=== PATIENT | female | born 1985 ===

== ENCOUNTER 2017-10-04 21:32 | Inpatient (IN) | payer OTHER ==
[2017-10-04] MEDS ORDERED: Lidocaine 2% PF (10 ml) Amp ONE (21:53)
[2017-10-04 22:30] VITALS: BMI 26.6
[2017-10-04] MEDS ORDERED: Benzocaine/Menthol SPRAY TOP PRN (22:57)
[2017-10-04] MEDS ORDERED: Oxycodone/Acetaminophen 5/325 mg Tab PO PRN (22:57)
[2017-10-05 00:07] LABS: BASO % 0.1 % (0.0-2.0); EOS # 0.3 K/uL (0.0-0.7); EOS % 1.4 % (0.0-4.0); HEMOGLOBIN 14.2 g/dL (12.0-16.0); LYMPH # 4.9 K/uL (1.0-4.3); MEAN CORPUSCULAR HEMOGLOBIN 28.4 pg (27.0-31.0); MEAN CORPUSCULAR HGB CONC 33.4 g/dL (33.0-37.0); MEAN PLATELET VOLUME 10.8 fl (7.2-11.7); MONO # 1.2 K/uL (0.0-0.8); MONO % 6.6 % (0.0-10.0); NEUT # 11.8 K/uL (1.8-7.0); NEUT % 64.9 % (50.0-75.0); RED CELL DISTRIBUTION WIDTH 14.6 % (11.5-14.5); WHITE BLOOD COUNT 18.2 K/uL (4.8-10.8)
[2017-10-05] MEDS ORDERED: Oxycodone/Acetaminophen 5/325 mg Tab PO PRN ×2 (02:01→02:02)
[2017-10-05] MEDS ORDERED: Benzocaine/Menthol SPRAY TOP PRN ×2 (02:01→02:02)
[2017-10-05 02:37] VITALS: RESP 18
[2017-10-05 07:01] LABS: BASO % 0.2 % (0.0-2.0); EOS # 0.1 K/uL (0.0-0.7); EOS % 0.5 % (0.0-4.0); HEMOGLOBIN 12.7 g/dL (12.0-16.0); LYMPH % 12.2 % (20.0-40.0); MEAN CELL VOLUME 83.8 fl (81.0-99.0); MEAN CORPUSCULAR HEMOGLOBIN 28.4 pg (27.0-31.0); MEAN CORPUSCULAR HGB CONC 33.9 g/dL (33.0-37.0); MEAN PLATELET VOLUME 11.4 fl (7.2-11.7); MONO # 1.1 K/uL (0.0-0.8); NEUT # 13.2 K/uL (1.8-7.0); NEUT % 80.1 % (50.0-75.0); NRBC % 0.1 % (0.0-0.0); RBC 4.48 Mil/uL (3.80-5.20); RED CELL DISTRIBUTION WIDTH 14.9 % (11.5-14.5); WHITE BLOOD COUNT 16.4 K/uL (4.8-10.8)
--- NOTE | 2017-10-05 08:32 | OBADHP ---
Datetime: 10/04/2017 23:28 Admit Comment, IP Provider: at 37wks GA presented to [facility] with precipitous labor. Pt fully dil ated and delivering upon presentation. records reviewed. PMHx denies PSHx denies Meds PNV OBHx x 1 SocHx No tob,etoh.drugs A: Active Labor P: Admitted for management Pelvic Type - PN: Adequate Extremities - PN: Normal Abdomen - PN: Normal Back - PN: Normal Breast - PN: Normal Lungs - PN: Normal Heart - PN: Normal Thyroid - PN: Normal Neurologic - PN: Normal HEENT - PN: Normal General - PN: Normal FHR - Baseline A Provider: 120s Contraction Comments Provider: q2-3min IP Hx Assessment: The History has been Reviewed and is Current Vital Signs Provider: Reviewed; Within Normal Limits IP Chief Complaint: Uterine contractions Dilatation, Provider: 10 Effacement, Provider: 100 Station, Provider: 3 Genitourinary Exam: Normal DTRs - PN: Normal IP Adm Impression: Term, intrauterine ; Active labor IP Admit Plan: Admit to unit; Initiate labor protocol
--- NOTE | 2017-10-05 08:40 | OBDS ---
DELIVERY PERSONNEL Delivery Doctor: Kashif Quiroga MD Scrub Nurse: Yessenia Cnao OBT Form Setter [employer] Forms: Arlen Pinzon RN MATERNAL INFORMATION Delivery Anesthesia: Local Medications in Delivery: pitocin Estimated Blood Loss (ml): 300 Placenta Cultured: No Maternal Complications: None Provider Comments: . Precipitous delivery. Pt delivered viable infant with Apgars 9/9. Pt with SROM moments before delivery. Placenta deliv ered spontaneously. Loose nuchal cord x 1 reduced. Cord with true knot. laceration repaired, as ab ove. Placenta delivered spontaneously. Uterus firm and appropriately hemostatic following delivery. Pt tolerated delivery and repair well. No complications. EBL 300cc. LABOR SUMMARY EDC: 10/24/2017 00:00 No. Babies in Womb: 1 LABOR INFORMATION Onset of Labor: 10/04/2017 17:30 Complete Dilatation: 10/04/2017 21:44 Oxytocin: N/A Group B Beta Strep: Negative Steroids Given: None Reason Steroids Not Administered: Not Applicable MEMBRANES Membranes Rupture Method: Spontaneous Rupture of Membranes: 10/04/2017 21:45 Length of Rupture (hrs): 0.02 Amniotic Fluid Color: MODERATE MECONIUM Amniotic Fluid Amount: Moderate Amniotic Fluid Odor: Normal STAGES OF LABOR Stage 1 hrs: 4 Stage 1 min: 14 Stage 2 hrs: 0 Stage 2 min: 2 Stage 3 hrs: 0 Stage 3 min: 4 Total Time in Labor hrs: 4 Total Time in Labor min: 20 VAGINAL DELIVERY Episiotomy: None Laceration Extension: Second Degree Laceration Type: Perineal Laceration Repair: Yes Laceration Repair Note: Second degree midline perineal lacerations. Area infiltrated with 1%lido. lac repaired with 2.0 rapide without complications. Pt tolerated well Initial Vag Sponge Count: 5 Final Vag Sponge Count: 5 Initial Vag Sharps Count: 2 Final Vag Sharps Count: 2 Sponge Count Correct: Yes Sharps Count Correct: Yes Count Comment: correct BABY A INFORMATION Delivery Date/Time: 10/04/2017 21:46 Method of Delivery: Vaginal Born in Route : No : N/A Forceps: N/A Vacuum Extraction: N/A Shoulder Dystocia : No SHOULDER DYSTOCIA BABY A Infant Delivery Date/Time: 10/04/2017 21:46 PRESENTATION/POSITION BABY A Presentation: Cephalic Cephalic Presentation: Vertex Vertex Position: Left Occipital Anterior Breech Presentation: N/A PLACENTA INFORMATION BABY A Placenta Delivery Time : 10/04/2017 21:50 Placenta Method of Delivery: Spontaneous Placenta Status: Delivered SCORES BABY A Heart Rate 1 min: >100 bpm Resp Effort 1 min: Good Cry Reflex Irritability 1 min: Cough or Sneeze or Pulls Away Muscle Tone 1 min: Active Motion Color 1 min: Body [place], Extremities Blue SCORE 1 MIN: 9 Heart Rate 5 min: >100 bpm Resp Effort 5 min: Good Cry Reflex Irritability 5 min: Cough or Sneeze or Pulls Away Muscle Tone 5 min: Active Motion Color 5 min: Body [place], Extremities Blue SCORE 5 MIN: 9 INFORMATION BABY A Gestational Age at Delivery: 37.1 Gestational Status: Outcome : Liveborn Infant Condition : Stable Infant Sex: Male IDENTIFICATION/MEDS BABY A ID Band Number: [id number] ID Band Location: Left Leg; Left Arm WEIGHT/LENGTH BABY A Birthweight (gms): 3400 Weight (lb): 7 Weight (oz): 8 Infant Length Inches: 20.50 Length cms: 52.1 CORD INFORMATION BABY A No. Cord Vessels: 3 Nuchal Cord : Around Neck x1, Loose Cord Blood Taken: Yes Suction: Mouth; Nose ASSESSMENT BABY A Infant Complications: None Physical Findings at Delivery: Within Normal Limits Infant Respirations: Appears Normal Felt Hat Inspector And Packer/ALS Called : No Infant Care By: bry lara Transferred To: Remains with Mother RESUSCITATION BABY A Resuscitation Effort: Tactile Stimulation
--- NOTE | 2017-10-05 08:41 | OBDS ---
DELIVERY PERSONNEL Delivery Doctor: Kashif Quiroga MD Scrub Nurse: Yessenia Cano OBT Planisher: Arlen Pinzon RN MATERNAL INFORMATION Delivery Anesthesia: Local Medications in Delivery: pitocin Estimated Blood Loss (ml): 300 Placenta Cultured: No Maternal Complications: None Provider Comments: . Precipitous delivery. Pt delivered viable infant with Apgars 9/9. Pt with SROM moments before delivery. Placenta deliv ered spontaneously. Loose nuchal cord x 1 reduced. Cord with true knot. laceration repaired, as ab ove. Placenta delivered spontaneously. Uterus firm and appropriately hemostatic following delivery. Pt tolerated delivery and repair well. No complications. EBL 300cc. LABOR SUMMARY EDC: 10/24/2017 00:00 No. Babies in Womb: 1 LABOR INFORMATION Onset of Labor: 10/04/2017 17:30 Complete Dilatation: 10/04/2017 21:44 Oxytocin: N/A Group B Beta Strep: Negative Steroids Given: None Reason Steroids Not Administered: Not Applicable MEMBRANES Membranes Rupture Method: Spontaneous Membranes Rupture Method: Spontaneous Rupture of Membranes: 10/04/2017 21:45 Rupture of Membranes: 10/04/2017 21:45 Length of Rupture (hrs): 0.02 Amniotic Fluid Color: moderate Amniotic Fluid Color: MODERATE MECONIUM Amniotic Fluid Amount: Moderate Amniotic Fluid Amount: Moderate Amniotic Fluid Odor: Normal STAGES OF LABOR Stage 1 hrs: 4 Stage 1 min: 14 Stage 2 hrs: 0 Stage 2 min: 2 Stage 3 hrs: 0 Stage 3 min: 4 Total Time in Labor hrs: 4 Total Time in Labor min: 20 VAGINAL DELIVERY Episiotomy: None Laceration Extension: Second Degree Laceration Type: Perineal Laceration Repair: Yes Laceration Repair Note: Second degree midline perineal lacerations. Area infiltrated with 1%lido. lac repaired with 2.0 rapide without complications. Pt tolerated well Initial Vag Sponge Count: 5 Final Vag Sponge Count: 5 Initial Vag Sharps Count: 2 Final Vag Sharps Count: 2 Sponge Count Correct: Yes Sharps Count Correct: Yes Count Comment: correct BABY A INFORMATION Delivery Date/Time: 10/04/2017 21:46 Method of Delivery: Vaginal Born in Route : No : N/A Forceps: N/A Vacuum Extraction: N/A Shoulder Dystocia : No SHOULDER DYSTOCIA BABY A Infant Delivery Date/Time: 10/04/2017 21:46 PRESENTATION/POSITION BABY A Presentation: Cephalic Cephalic Presentation: Vertex Vertex Position: Left Occipital Anterior Breech Presentation: N/A PLACENTA INFORMATION BABY A Placenta Delivery Time : 10/04/2017 21:50 Placenta Method of Delivery: Spontaneous Placenta Status: Delivered SCORES BABY A Heart Rate 1 min: >100 bpm Resp Effort 1 min: Good Cry Reflex Irritability 1 min: Cough or Sneeze or Pulls Away Muscle Tone 1 min: Active Motion Color 1 min: Body [place], Extremities Blue SCORE 1 MIN: 9 Heart Rate 5 min: >100 bpm Resp Effort 5 min: Good Cry Reflex Irritability 5 min: Cough or Sneeze or Pulls Away Muscle Tone 5 min: Active Motion Color 5 min: Body [place], Extremities Blue SCORE 5 MIN: 9 INFORMATION BABY A Gestational Age at Delivery: 37.1 Gestational Status: Infant Outcome : Liveborn Infant Condition : Stable Sex: Male IDENTIFICATION/MEDS BABY A ID Band Number: [id number] ID Band Location: Left Leg; Left Arm WEIGHT/LENGTH BABY A Birthweight (gms): 3400 Infant Weight (lb): 7 Infant Weight (oz): 8 Infant Length Inches: 20.50 Infant Length cms: 52.1 CORD INFORMATION BABY A No. Cord Vessels: 3 Nuchal Cord : Around Neck x1, Loose Cord Blood Taken: Yes Suction: Mouth; Nose ASSESSMENT BABY A Complications: None Physical Findings at Delivery: Within Normal Limits Respirations: Appears Normal Parlor Maid/ALS Called : No Care By: bry lara Transferred To: Remains with Mother RESUSCITATION BABY A Resuscitation Effort: Tactile Stimulation
--- NOTE | 2017-10-05 22:31 | OBPPN ---
Datetime: 10/05/2017 22:26 PP Pain Prov: Within normal limits PP Nausea Prov: Denies PP Flatus Prov: Yes PP BM Prov: Yes PP Breasts Prov: Normal PP Heart Prov: Normal PP Lungs Prov: Normal PP Abdomen/Uterus Prov: Normal PP Lochia Prov: Normal PP Vulva/Perineum Prov: Normal PP CVA Tenderness Prov: Normal PP Extremities Prov: Normal PP Progress Prov: Normal PP Impression Prov: Normal progression PP Plan Prov: Continue present management PP Progress Note Prov: She feels fine. No problems H/H 12/37 A; S/P day 1 PLAN: cont post care Vital Signs Provider PP: Reviewed; Within Normal Limits
--- NOTE | 2017-10-06 10:58 | OBPPN ---
Datetime: 10/06/2017 10:56 PP Pain Prov: Within normal limits PP Nausea Prov: Denies PP Flatus Prov: Yes PP Breasts Prov: Normal PP Heart Prov: Normal PP Lungs Prov: Normal PP Abdomen/Uterus Prov: Normal PP Lochia Prov: Normal PP Vulva/Perineum Prov: Normal PP CVA Tenderness Prov: Normal PP Extremities Prov: Normal PP Comments Phys Exam Prov: Fundus firm under umbilicus PP Impression Prov: Normal progression PP Plan Prov: Continue present management PP Progress Note Prov: Patient denies CP, no SOB, no N/V, tolerating PO diet, abdominal pain tolerbl e with meds, mild lochia A/P PPD #2 1. discharge pt home 2. Discharge instructions reviewed IP PP Procedures: None Vital Signs Provider PP: Reviewed; Within Normal Limits
--- NOTE | 2017-10-06 11:01 | OBDCSUM ---
Datetime: 10/06/2017 08:11 Discharged to, Provider: Home Follow up at, Provider: Lizzie Disch Instr Activity: Normal activity Disch Instr Diet: Regular Discharge Instructions, Provider: Routine instructions given Discharge Diagnosis, Provider: Term Delivered Discharge Time: 10/06/2017 10:58 Follow up in weeks, Provider: 4-6 weeks Disch Referrals: None Contraception discussed, Prov: Yes
[2017-10-06 17:56] VITALS: BP 120/67; PULSE 81; TEMP 97.7; O2SAT 99
== END 2017-10-06 13:45 | disposition home or self-care (01) | DRG 775 ==
LOC: H.EROB2 21:32 → H.L&D 21:45 → H.OB/GYN 10-05 01:20
PROVIDERS: ADMIT Obstetrics & Gynecology; ATTEND Obstetrics & Gynecology
PROC: 10E0XZZ Delivery of Products of Conception, External Approach (ICD-10-PCS; principal; 2017-10-04)
PROC: 0KQM0ZZ Repair Perineum Muscle, Open Approach (ICD-10-PCS; 2017-10-04)
PROC: 4A1HXCZ Monitoring of Products of Conception, Cardiac Rate, External Approach (ICD-10-PCS; 2017-10-04)
DX: O69.81X0 Labor and delivery complicated by cord around neck, without compression, not applicable or unspecified (principal); Z37.0 Single live birth; O62.3 Precipitate labor; Z3A.37 37 weeks gestation of pregnancy; O70.1 Second degree perineal laceration during delivery